=== PATIENT | male | born 1935 | race Caucasian/White ===

== ENCOUNTER 2016-10-31 21:03 | Inpatient (IN) ==
--- NOTE | 2016-10-31 22:02 | EKG Report ---
Test Performed on : 10/31/2016 9:56:07 PM Test Reason : SOB Blood Pressure : / mmHG Vent. Rate : 116 BPM Atrial Rate : 116 BPM P-R Int : 168 ms QRS Dur : 100 ms QT Int : 332 ms P-R-T Axes : 061 143 042 degrees QTc Int : 461 ms Sinus tachycardia. Right axis deviation Abnormal ECG No previous ECGs available Unconfirmed Result
--- NOTE | 2016-10-31 23:03 | ED EKG INTERP ---
This chart was entered by Grace Maurice Scribe, acting as scribe for Marvin Chaney Jr, MD. EKG Interpretation - EKG Time of EKG reading by physician:: 21:56 EKG Read and Signed by:: Marvin Chaney Jr EKG Interpretation (*Must complete 3 of following elements*): Abnormal Rate: 116 Rhythm: sinus tachycardia Comments: abnormal ECG Attestation - Physician/ MEGAN Attestation The physician spent face to face time with patient:: No Advanced Practice Provider documentation review:: Supervising physician onsite and consulted in the evaluation and care of this patient. The physician did not have a face to face encounter with the patient. This chart was documented by the indicated scribe, (Grace Maurice Scribe) and accurately reflects the services I performed and decisions made by me, Marvin Chaney Jr, MD, as attested by the provider's signature.
[2016-10-31 23:11] LABS: MANUAL DIFF NEEDED? NO
[2016-10-31 23:16] LABS: BASO% 0.1 % (0.0-0.8); HEMATOCRIT 37.8 % (42.0-52.0); HEMOGLOBIN 12.9 g/dL (14.0-18.0); IMM GRAN# 0.04 X1000 (0.0-0.04); IMM GRAN% 0.3 % (0.0-0.5); LYMPH# 0.87 X1000 (1.2-3.4); LYMPH% 6.9 % (20.5-51.1); MCHC 34.1 g/dL (33-37); MCV 84.9 FL (81-99); MONO# 1.12 X1000 (0.11-0.59); MONO% 8.9 % (1.7-9.3); MPV 10.9 FL (7.4-10.4); NEUT% 83.8 % (42.2-75.2); PLT 167 X1000 (130-400); RBC 4.45 XMIL (4.7-6.1)
--- NOTE | 2016-10-31 23:18 | Diag Imaging Result Doc PS360 ---
EXAM: CHEST-2 VIEWS HISTORY: CP TECHNIQUE: Two views COMPARISON: None. FINDINGS: The lungs are hyperexpanded. The heart is not enlarged. The pulmonary vessels are small. No pleural effusions. Minimal increased markings in the lung base best seen on the lateral view. A believe this is in the right lower lobe. IMPRESSION: Emphysema. Fibrosis versus a tiny infiltrate in the right base. Electronically signed by Jason Alvarez 10/31/2016 11:16 PM
[2016-10-31 23:20] LABS: INR 1.03 (0.86-1.15); PROTIME 14.3 Seconds (12.1-15.5)
[2016-10-31 23:21] LABS: PTT PL 28.4 Seconds (22.6-43.9)
[2016-10-31 23:38] LABS: MAGNESIUM 2.2 mg/dL (1.5-2.7); POTASSIUM 4.9 mmol/L (3.5-5.1); TOTAL BILIRUBIN 1.2 mg/dL (0.20-1.00); TOTAL PROTEIN 6.8 g/dL (6.3-8.3)
[2016-10-31] MEDS ORDERED: HUMULIN R (PARKWAY) IV ONE (23:47)
[2016-10-31] MEDS ORDERED: NS 1,000 ML IV ONE (23:47)
--- NOTE | 2016-11-01 00:19 | EKG Report ---
Test Performed on : 11/01/2016 00:02:39 AM Test Reason : CHEST PAIN Blood Pressure : / mmHG Vent. Rate : 111 BPM Atrial Rate : 111 BPM P-R Int : 168 ms QRS Dur : 100 ms QT Int : 342 ms P-R-T Axes : 057 123 043 degrees QTc Int : 465 ms Sinus tachycardia. Right axis deviation Abnormal ECG When compared with ECG of 31-OCT-2016 21:56, (Unconfirmed) No significant change was found Unconfirmed Result
[2016-11-01] MEDS ORDERED: HUMULIN R IV ONE ×2 (01:28→10:07)
[2016-11-01] MEDS ORDERED: NS 1,000 ML IV ONE ×3 (01:28→06:00)
[2016-11-01] MEDS ORDERED: HUMULIN R (PARKWAY) ONE (01:33)
[2016-11-01 01:41] LABS: BE -10.7 mmoll (-3.0-3.0); BLOOD TYPE ARTERIAL; DRAW SITE R BRACHIAL; METHB 1.3 % (0.0-1.5); O2(CT) 15.8 mL/dL (15.0-23.0); PCO2(98.6) 28 mmHg (35-45); PO2(98.6) 56 mmHg (60-100); SAMPLE BLOOD; SAO2 93.5 % (95.0-100.0); THB 12.5 g/dL (11.5-17.4); pH(98.6) 7.31 (7.35-7.45)
[2016-11-01 01:46] LABS: ALLEN TEST NO; MODALITY ROOM AIR
[2016-11-01] MEDS ORDERED: ROCEPHIN 1 GM/NS 1 GM/50 ML IVPB IV ONE (03:30)
--- NOTE | 2016-11-01 03:45 | ED EKG INTERP ---
This chart was entered by Grace Maurice Scribe, acting as scribe for Marvin Chaney Jr, MD. EKG Interpretation - EKG Time of EKG reading by physician:: 00:02 EKG Read and Signed by:: Marvin Chaney Jr EKG Interpretation (*Must complete 3 of following elements*): Abnormal Rate: 111 Rhythm: sinus tachycardia Comments: abnormal ECG Attestation - Physician/ MEGAN Attestation The physician spent face to face time with patient:: Yes Advanced Practice Provider documentation review:: Supervising physician onsite and consulted in the evaluation and care of this patient. The physician did have a face to face encounter with the patient. This chart was documented by the indicated scribe, (Grace Maurice Scribe) and accurately reflects the services I performed and decisions made by me, Marvin Chaney Jr, MD, as attested by the provider's signature.
[2016-11-01] MEDS ORDERED: MORPHINE IV PRN (03:52)
[2016-11-01] MEDS ORDERED: ZOFRAN IV PRN ×2 (03:52→06:00)
--- NOTE | 2016-11-01 03:54 | PROVIDER DOCUMENTATION ---
This chart was entered by Grace Maurice Scribe, acting as scribe for Marvin Chaney Jr, MD. HPI-General Adult - General Chief Complaint: Shortness of Breath Stated Complaint: BLURRED VISION/WEAKNESS Time Seen by Provider: 11/01/16 00:03 Source: patient, family Allergies/Adverse Reactions: Patient Allergies Allergy/AdvReac Type Severity Reaction Status Date / Time No Known Allergies Allergy Verified 10/21/13 17:14 Home Medications: Home Medication List Medication Instructions Recorded Confirmed Last Taken Type NK [No Home Medications] 10/31/16 10/31/16 Unknown History - History of Present Illness -Gen Adult Nature of Presenting Problems: 81 y/O M presents to ER with family with the complain of nausea/vomit/SOB and blurry vision X1 day. pt family states that it is going for one day and pt had X2 episode of vomit. pt denies any other symptoms. Severity: reports: mild Onset/Duration: reports: 24 hours ago Similar Symptoms Previously?: No Recently seen or treated by another doctor?: No Review of Systems - Adult - REVIEW OF SYSTEMS - ADULT Constitutional: reports: no symptoms reported Eyes: reports: blurred vision. denies: discharge, double vision Ears, Nose, Mouth & Throat: reports: no symptoms reported Cardiovascular: reports: no symptoms reported Respiratory: reports: shortness of breath. denies: cough, wheezing Gastrointestinal: reports: nausea, vomiting. denies: abdominal pain, diarrhea Genitourinary: reports: no symptoms reported Musculoskeletal: reports: no symptoms reported Integumentary: reports: no symptoms reported Neurological: reports: no symptoms reported Psychiatric: reports: no symptoms reported Endocrine: reports: no symptoms reported Hematologic/Lymphatic: reports: no symptoms reported Allergic/Immunologic: reports: no symptoms reported All Other Systems: Reviewed and Negative Past History - Adult - PAST MEDICAL HISTORY-ADULT Review of Records: reports: Old Records Reviewed, Nursing Assessment Review Cardiovascular: reports: HTN Neurological: reports: dementia Endocrine/Immune: reports: Diabetes - PRIOR SURGERIES/PROCEDURES Surgical/Procedure History: reports: orthopedic (extremity) (Right knee surgery 2010) - IMMUNIZATION STATUS Childhood Immunizations: See Nurse Assessment Flu Vaccine: See Nurse Assessment - FAMILY HISTORY Family History: reviewed, not pertinent Physical Exam-General - PHYSICAL EXAM-ADULT Initial Vital Signs Reviewed: Yes - CONSTITUTIONAL General Appearance: appears well, alert - EYES Eyes: PERRL/EOMI, pink conjunctivae - HEAD, EARS, NOSE, MOUTH & THROAT HENMT: moist mucous membranes, normal ENT inspection, TMs normal - NECK Neck: non-tender, full range of motion, supple - RESPIRATORY Respiratory: chest non-tender, lungs clear, normal breath sounds - CARDIOVASCULAR Cardiovascular: normal peripheral pulses, regular rate, rhythm, no edema - GASTROINTESTINAL (ABDOMEN) Abdominal Exam: normal bowel sounds, non tender, soft - MUSCULOSKELETAL Back Exam: normal inspection, no CVA tenderness, no vertebral tenderness Extremity: non-tender, normal inspection - SKIN Integumentary: normal color, normal turgor, warm/dry - NEUROLOGIC Neurologic: grossly normal, no motor/sensory deficits - PSYCHIATRIC Psych/Mental Status: normal mood/affect, normal thought content, normal thought process, oriented x 3 Progress - PLAN OF CARE/RESULTS Progress/Plan/Lab Results: Vital Signs - 8 hr 10/31/16 21:40 10/31/16 21:50 10/31/16 22:42 Temperature 99.5 F Pulse Rate 122 H 120 H 111 H Respiratory Rate 20 21 26 H Blood Pressure 142/71 139/74 123/74 O2 Sat by Pulse Oximetry 94 L 93 L 95 10/31/16 23:43 Temperature Pulse Rate 110 H Respiratory Rate 23 Blood Pressure 133/74 O2 Sat by Pulse Oximetry 95 Laboratory Results - last 24 hr 10/31/16 10/31/16 10/31/16 22:10 22:10 22:10 WBC RBC Hgb Hct MCV MCH MCHC RDW Std Deviation Plt Count MPV Immature Gran % (Auto) Neut % (Auto) Lymph % (Auto) Amador % (Auto) Eos % (Auto) Baso % (Auto) Immature Gran # (Auto) Neut # (Auto) Lymph # (Auto) Amador # (Auto) Eos # (Auto) Baso # (Auto) PT INR APTT (Factor Assay) D-Dimer Sodium 129 L Potassium 4.9 Chloride 88 L Carbon Dioxide 10 L Anion Gap 31 BUN 31 H Creatinine 1.8 H Estimated GFR/1.73 m2 36 BUN/Creatinine Ratio 17 Glucose 616 H* Calculated Osmolality 295 Calcium 9.0 Total Bilirubin 1.20 H AST 17 Alkaline Phosphatase 113 Troponin T 0.014 Spr-B-Ldboraimfwp Pept 689 H Total Protein 6.8 Albumin 4.0 Globulin 3.0 Albumin/Globulin Ratio 1.0 Acetone Level 10/31/16 10/31/16 10/31/16 22:10 22:10 23:58 WBC 12.63 H RBC 4.45 L Hgb 12.9 L Hct 37.8 L MCV 84.9 MCH 29.0 MCHC 34.1 RDW Std Deviation 14.0 Plt Count 167 MPV 10.9 H Immature Gran % (Auto) 0.3 Neut % (Auto) 83.8 H Lymph % (Auto) 6.9 L Amador % (Auto) 8.9 Eos % (Auto) 0.0 Baso % (Auto) 0.1 Immature Gran # (Auto) 0.04 Neut # (Auto) 10.59 H Lymph # (Auto) 0.87 L Amador # (Auto) 1.12 H Eos # (Auto) 0.00 Baso # (Auto) 0.01 PT 14.3 INR 1.03 APTT (Factor Assay) 28.4 D-Dimer 0.73 H Sodium Potassium Chloride Carbon Dioxide Anion Gap BUN Creatinine Estimated GFR/1.73 m2 BUN/Creatinine Ratio Glucose Calculated Osmolality Calcium Total Bilirubin AST Alkaline Phosphatase Troponin T Nzf-H-Sfkxisdtjco Pept Total Protein Albumin Globulin Albumin/Globulin Ratio Acetone Level MODERATE A Orders Category Date Time Status Cardiac Monitoring DIRECTED Care 10/31/16 23:00 Active Saline Loc NOW Care 10/31/16 23:00 Active CHEST-2 VIEWS [RAD] Stat Exams 10/31/16 23:00 Completed ACETONE SERUM [CHEM] Stat Lab 10/31/16 23:58 Completed CBC WITH ELECTRONIC DIFF [HEME] Stat Lab 10/31/16 22:10 Completed CK PROFILE [SP CHEM] Stat Lab 10/31/16 22:10 Completed COMPREHENSIVE METABOLIC PANEL [CHEM] Stat Lab 10/31/16 22:10 Completed D-DIMER PL [COAG] Stat Lab 10/31/16 22:10 Completed MAGNESIUM [CHEM] Stat Lab 10/31/16 22:10 Completed PRO B-NATRIURETIC PEPTIDE Stat Lab 10/31/16 22:10 Completed [address]IME WITH INR PL [COAG] Stat Lab 10/31/16 22:[address] [COAG] Stat Lab 10/31/16 22:10 Completed TROPONIN T Stat Lab 10/31/16 22:[address] W/POSS RFLX CULT [URINALYSIS] Stat Lab 10/31/16 23:48 Uncollected 0.9% Sodium Chloride Inj [Ns] 1,000 ml Med 10/31/16 23:47 Discontinued IV 999 mls/hr Insulin Human Regular (Athalia [Humulin R (Athalia)] Med 10/31/16 23:47 Discontinued 12 units IV NOW ONE EKG [EKG] Stat Ther 10/31/16 21:52 Draft EKG [EKG] Stat Ther 10/31/16 23:00 Draft Result Diagrams: 10/31/16 22:10 10/31/16 22:10 - XRAY 1 XRAY: Bilateral XRAY Study: Chest Impression: Abnormal (Emphysema Fibrosis versus a tiny infiltrate in R base by radiologist) - CONSULTS/PCP/HOSPITALIST Notification #1 *Consult/PCP/Hospitalist*: Dr. Mccollum Time Discussed: 03:36 Reason/Comments: discussed about pt Consult Disposition: Admit (accepted pt in admission to ICU) Departure - Departure Date of Disposition Decision: 11/01/16 Time of Disposition Decision: 03:48 DIAGNOSIS: Sepsis Qualifiers: Sepsis type: sepsis due to unspecified organism Qualified Code(s): A41.9 - Sepsis, unspecified organism DKA (diabetic ketoacidoses) Qualifiers: Diabetes mellitus type: type 2 Diabetes mellitus complication detail: without coma Qualified Code(s): E13.10 - Other specified diabetes mellitus with ketoacidosis without coma Pneumonia Qualifiers: Pneumonia type: due to unspecified organism Laterality: right Lung location: lower lobe of lung Qualified Code(s): J18.1 - Lobar pneumonia, unspecified organism Disposition: ADMITTED INPATIENT 09 Certified Medical Emergency: Emergent Condition: Good Referrals and Follow-Ups: Noemi Cintron [Primary Care Provider] - - Critical Care Note This patient required my direct & personal management of CC.: No Total Time (mins): 30 Critical Care Statement: This patient required my direct personal management to treat or rule out processes, the absence of which, could potentiallly result in sudden, clinically significant life or limb threatening deterioration. Attestation - Physician/ MEAGN Attestation The physician spent face to face time with patient:: Yes Advanced Practice Provider documentation review:: Supervising physician onsite and consulted in the evaluation and care of this patient. The physician did have a face to face encounter with the patient. This chart was documented by the indicated scribe, (Grace Maurice Scribe) and accurately reflects the services I performed and decisions made by me, Marvin Chaney Jr, MD, as attested by the provider's signature.
[2016-11-01 04:22] LABS: BILIRUBIN URINE NEGATIVE (NEGATIVE); BLOOD URINE 1+ (NEGATIVE); CLARITY CLEAR (CLEAR); COLOR YELLOW; LEUKOCYTES URINE NEGATIVE (NEGATIVE); NITRITE URINE NEGATIVE (NEGATIVE); PROTEIN URINE 1+(30 mg/dL) mg/dL (NEGATIVE); SP GRAVITY URINE 1.015; UROBILINOGEN URINE NORMAL
[2016-11-01 04:30] LABS: URINE CULTURE PL NEEDED? YES; URINE EPITHELIAL CELLS <10 /HPF (<10); URINE RBC <10 /HPF (<10); URINE SOURCE CLEAN CATCH; URINE WBC NS /HPF (<10)
[2016-11-01] MEDS ORDERED: NS 1,000 ML IV SCH ×3 (05:55→11:35)
[2016-11-01] MEDS: ZOSYN 3.375 GM in NS 50 ML IV SCH ×4 (06:40→23:42)
--- NOTE | 2016-11-01 06:50 | HISTORY AND PHYSICAL ---
PRIMARY CARE PHYSICIAN: None. CHIEF COMPLAINT: Mental status changes. HISTORY OF PRESENT ILLNESS: An 81-year-old male who was brought to the emergency department due to having mental status changes and not feeling well. Apparently, he was evaluated at [facility] and is found to be in early DKA and imaging was consistent with pneumonia. Due to ICU beds being filled there, he was transferred to [facility] for further evaluation and management. At the time of my examination, patient is moderately confused. He is a poor historian. However, he had denied any headache, fever, chills, chest pain, or any recent weight changes. He states that he just does not know what is going on. PAST MEDICAL HISTORY: Unknown. PAST SURGICAL HISTORY: Unknown. ALLERGIES: No known drug allergies. CURRENT MEDICATIONS: None. SOCIAL HISTORY: Denies any history of smoking, alcohol or illicit drug use. FAMILY HISTORY: No history of coronary disease. REVIEW OF SYSTEMS: Limited due to his mental status changes. PHYSICAL EXAMINATION: GENERAL: The patient is resting comfortably. VITAL SIGNS: Temperature 97.5 degrees, pulse 91, respiration 26, blood pressure 112/64. HEENT: Atraumatic, normocephalic. Extraocular movements intact. PERRLA. NECK: No masses. CHEST: Bibasilar rales. CARDIOVASCULAR: Regular rate and rhythm. ABDOMEN: Soft. Positive bowel sounds. EXTREMITIES: No edema. NEUROLOGIC: He is awake, alert and oriented x2. : No bladder distention. SKIN: Warm. LABORATORIES AND STUDIES: Sodium 129, potassium 4.9, chloride 88, CO2 10, BUN 31, creatinine 1.8, glucose 16. WBC 12.63, hemoglobin 12.9, hematocrit 37.8 and platelets 167,000. Urine shows ketones. ASSESSMENT: An 81-year-old elderly male who is brought to the emergency department due to mental status changes and not feeling well. He was found to be in early DKA and also was found to have pneumonia on imaging. Due to his presenting symptoms, he will be admitted and however due to lack of ICU beds available at [facility], he nd was transferred to [facility] for further management. 1. Altered mental status possibly related to his infectious etiology versus underlying dementia. 2. Suspected dementia. 3. Early DKA. 4. Sepsis. 5. Pneumonia. PLAN: 1. We will admit patient to ICU. 2. We will check neuro checks q.2 hours. 3. Continue patient on IV fluids and put patient on high sliding insulin scale as his sugars have consistently come down. 4. We will check blood cultures. Start patient on IV antibiotics. 5. We will put patient on DVT prophylaxis with SCD's. 6. We will monitor his renal function as he has some acute kidney injury. 7. We will continue to follow and reassess. cc: Randolph Mccollum MD
[2016-11-01] MEDS ORDERED: HUMULIN R SUBQ SCH (07:00)
[2016-11-01] MEDS ORDERED: SODIUM BICARBONATE 8.4% 50 MEQ in D5W 250 ML IV PRN (10:07)
[2016-11-01] MEDS ORDERED: SODIUM BICARBONATE 8.4% 100 MEQ in D5W 500 ML IV PRN (10:07)
[2016-11-01] MEDS ORDERED: SODIUM PHOSPHATE 30 MMOL in D5W 250 ML IV PRN (10:07)
[2016-11-01] MEDS ORDERED: D5 1/2 NS 1,000 ML IV SCH (10:07)
[2016-11-01] MEDS ORDERED: 1/2 NS 1,000 ML IV SCH (10:07)
[2016-11-01] MEDS ORDERED: HUMULIN R 100 UNIT in NS 99 ML IV SCH (10:07)
[2016-11-01] MEDS ORDERED: D50W SYRINGE IV PRN (10:07)
[2016-11-01] MEDS ORDERED: MAGNESIUM SULFATE 2 GM/S.W.I. 2 GM/50 ML IVPB IV PRN (10:07)
[2016-11-01] MEDS ORDERED: D5 NS 1,000 ML IV SCH (10:32)
--- NOTE | 2016-11-01 10:53 | PROGRESS NOTE ---
DATE: 11/01/2016 SUBJECTIVE: Today, Mr. Amador said he was doing fine. I am not quite sure how much he definitely understands because he seems slightly obtunded. OBJECTIVE: Vital signs: Blood pressure is 126/61, pulse 87, respirations 20, temperature 97.5. General: Mr. Amador is an 81-year-old male. He is in bed. He does not seem to be in any remarkably distress. Mucosa is pink and slightly dry. Anicteric and acyanotic. Neck is supple. Chest was clear. Cardiovascular: Regular rate and rhythm. I did not appreciate any murmurs. Abdomen: Soft, nontender. Extremities: No pedal edema. SUBSTANCE ABUSE THERAPIST: The patient is sleepy but easily arousable. He seems to be confused, but I suspect he has a baseline dementia. DIAGNOSTIC DATA: ABG from this morning shows pH of 7.31, pCO2 of 28, paO2 is 56, and this was on ambient air. Chemistry from yesterday shows a sodium of 129, potassium 4.9, chloride 88, bicarb is 10 with gap of 31, creatinine is 1.8. Glucose at that time was 616, this morning his repeat glucose is 249. Chest x-ray which was done yesterday shows emphysema, fibrosis versus a tiny infiltrate in the right base. ASSESSMENT: 1. Diabetic ketoacidosis. 2. 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 3. Suspected right lower lobe pneumonia, infiltrate, questionable pneumonia. 4. Acute hypoxemic respiratory distress, likely due to underlying pneumonia and chronic obstructive pulmonary disease. 5. Altered mental status, likely due to metabolic encephalopathy with possible underlying dementia. 6. Renal insufficiency, likely acute on chronic. PLAN: The patient is already on Zosyn. We do not have any recent labs to check his DKA status. We are going to do a BMP STAT. If the patient continues to be acidotic, we will start the DKA protocol. For now, we will continue with adequate hydration. So far, the blood cultures preliminary is unremarkable. cc: Soham Alvares MD
[2016-11-01 11:16] LABS: CALCIUM 8.3 mg/dL (8.8-10.2)
[2016-11-01 11:24] LABS: MAGNESIUM 2.1 mg/dL (1.5-2.7)
[2016-11-01] MEDS: LANTUS SUBQ SCH (12:48)
[2016-11-01] MEDS ORDERED: INSULIN PEN NEEDLES ONE (12:48)
[2016-11-01] MEDS: HUMULIN R SUBQ SCH ×2 (16:00→20:38)
[2016-11-01 16:03] LABS: AGAP 16; BUN 25 mg/dL (8-22); CALCIUM 8.1 mg/dL (8.8-10.2); CHLORIDE 101 mmol/L (98-107); COSMO 285; SODIUM 138 mmol/L (136-145); TCO2 21 mmol/L (25-35)
[2016-11-01] MEDS ORDERED: POTASSIUM PHOSPHATE 20 MMOL in NS 250 ML IV ONE (16:06)
[2016-11-01] MEDS ORDERED: NEUTRA-PHOS PO ONE (16:06)
[2016-11-01] MEDS: NS 1,000 ML IV SCH (17:06)
[2016-11-02] MEDS: NS 1,000 ML IV SCH ×3 (04:51→15:23)
[2016-11-02] MEDS: ZOSYN 3.375 GM in NS 50 ML IV SCH ×4 (04:54→17:00)
[2016-11-02 05:51] LABS: BASO% 0.1 % (0.0-0.8); EOS# 0.02 X1000 (0.0-0.7); EOS% 0.2 % (0.0-10.0); HEMOGLOBIN 13.2 g/dL (14.0-18.0); IMM GRAN# 0.02 X1000 (0.0-0.04); IMM GRAN% 0.2 % (0.0-0.5); MANUAL DIFF NEEDED? NO
[2016-11-02 06:09] LABS: HEMOGLOBIN A1C 13.8 % (4.8-6.0)
[2016-11-02 06:11] LABS: AGAP 16; BUN 19 mg/dL (8-22); CALCIUM 8.2 mg/dL (8.8-10.2); CHLORIDE 100 mmol/L (98-107); COSMO 275; SODIUM 136 mmol/L (136-145); TCO2 20 mmol/L (25-35)
[2016-11-02] MEDS: HUMULIN R SUBQ SCH ×4 (06:18→22:46)
[2016-11-02 07:48] LABS: HEMATOCRIT 37.8 % (42.0-52.0); LYMPH# 1.45 X1000 (1.2-3.4); LYMPH% 14.8 % (20.5-51.1); MCH 28.9 PG (27-31); MCHC 34.9 g/dL (33-37); MCV 82.7 FL (81-99); MONO# 0.91 X1000 (0.11-0.59); MONO% 9.3 % (1.7-9.3); MPV 10.9 FL (7.4-10.4); NEUT% 75.4 % (42.2-75.2); PLT 197 X1000 (130-400); RBC 4.57 XMIL (4.7-6.1)
--- NOTE | 2016-11-02 09:32 | PROGRESS NOTE ---
DATE: 11/02/2016 SUBJECTIVE: Mr. Amador was sleeping, resting comfortably, breathing comfortably. He was admitted yesterday morning. He had mental status changes. His sees Dr. Noemi Cintron. An 81-year-old, brought to the emergency department due to having mental status changes, not feeling well. Apparently he was evaluated at [facility], found to have early DKA. Imaging was consistent with pneumonia. Due to ICU beds being filled, he was transferred here to [facility]. At time of examination, patient was moderately confused, poor historian. Denied any headache, fever, chills, chest pain, or any recent weight changes. PAST MEDICAL HISTORY: Kind of unknown at this point. Suspect some underlying dementia. Admitted with sepsis, early DKA, suspected dementia and pneumonia. He was sleeping, resting comfortably and breathing comfortably when I saw him on the morning of 11/02/2016. OBJECTIVE: Vital Signs: Temp 98.6 degrees, pulse 90, respirations 8, blood pressure 121/67. Lungs: Clear anterior and lateral and posterior. Cardiovascular exam: Regular rhythm and rate without murmur or S3. Abdomen: Soft. Skin: Warm and dry. : Urine output 2800 mL. LAB: White count 9790, hematocrit 37, platelet count 197,000. Chemistry: Sodium 136, potassium 4.0, chloride 100, BUN 19, creatinine 1.1, blood sugar 219, 122, and 113. Hemoglobin A1c was 13.8. ASSESSMENT AND PLAN: 1. Diabetic ketoacidosis, which is resolved. 2. Pneumonia and underlying chronic obstructive pulmonary disease. He has emphysematous changes on x-ray, so exacerbation of chronic obstructive pulmonary disease, right lower lobe pneumonia infiltrate. Continue present antibiotics. Appears to have good air-gas exchange. 3. Acute hypoxemic respiratory distress due to underlying pneumonia and chronic obstructive pulmonary disease. This is improved. 4. Altered mental status. Suspect multifactorial metabolic encephalopathy probably with underlying dementia. 5. Renal insufficiency. Suspect acute on chronic. His creatinine was stable at 1.1. He looks good. Review of his orders: He got a dose of ceftriaxone. He is on Zosyn 3.375 mg IV q. 6 hours. He is on normal saline at 100 mL an hour. He is getting insulin IV. I think we can change him to sliding-scale subcutaneous. cc: MD Soham Flannery MD
[2016-11-02] MEDS: LANTUS SUBQ SCH (11:02)
--- NOTE | 2016-11-02 19:08 | Extremity Venous Study ---
PROCEDURE NAME: Venous U/S Bilateral Legs - 11/01/2016 REQUESTING PHYSICIAN: Dr. Chaney. [employer] S[employer] INTEGRATION SENIOR MANAGER: Rachel. INDICATIONS: Shortness of breath. PROCEDURE: Bilateral lower extremity venous duplex and color flow imaging. EQUIPMENT: [employer] Vivid E9 ultrasound system with 9 LD transducer. FINDINGS: Images of bilateral lower extremity venous systems were obtained in both sagittal and transverse planes. Doppler was used to evaluate veins for spontaneity, phasicity, respiratory excursion, and digital augmentation. RESULTS: Some reflux noted in the bilateral common femoral vein but otherwise no superficial or deep venous thrombosis noted. INTERPRETATION: Reflux noted in the bilateral common femoral veins but no obvious superficial or deep venous thrombosis noted on this study to bilateral lower extremity. cc: MD Soham Schwab MD
[2016-11-03] MEDS: ZOSYN 3.375 GM in NS 50 ML IV SCH ×4 (01:35→17:56)
[2016-11-03] MEDS: NS 1,000 ML IV SCH ×2 (05:54→16:01)
[2016-11-03] MEDS ORDERED: INSULIN PEN NEEDLES ONE (10:44)
[2016-11-03] MEDS: HUMULIN R SUBQ SCH ×4 (10:46→22:11)
[2016-11-03] MEDS: LANTUS SUBQ SCH (10:47)
--- NOTE | 2016-11-03 14:46 | PROGRESS NOTE ---
DATE: 11/03/2016 SUBJECTIVE: Mr. Amador is resting sleeping, able to arouse him but he went right back sleep again, he does not appear to be any distress breathing comfortably. His lunch was there, he is going to need some help with eating. OBJECTIVE: Vital signs: Temperature 98.3 degrees, pulse 94, respirations 20, blood pressure 136/63. Lungs: Are clear anterior and posterior. Cardiovascular: Regular rhythm and rate without murmur or S3. Abdomen: Soft. Skin: Warm and dry. Urine output 2300. LAB: Reviewed from , blood sugars have been 120, 142, 238. ASSESSMENT AND PLAN: 1. Diabetic ketoacidosis which has resolved. 2. Pneumonia underlying chronic obstructive pulmonary disease, chronic obstructive pulmonary disease exacerbation and right lower lobe pneumonia which is better. Continue IV antibiotics. 3. Acute hypoxic respiratory distress with underlying pneumonia which is resolved quickly. He is out of the unit back on the floor breathing comfortably. 4. Altered mental status suspect multifactor metabolic encephalopathy. Still pretty lethargic. 5. Renal insufficiency. Creatinine looks like is back to baseline. Continue Zosyn IV and ceftriaxone. I am not sure where his baseline is so hopefully he wake up and we can continue physical therapy and encourage p.o. intake. IV fluids right now going at 100 mL an hour. I do not know that we have ever had an echocardiogram, may be worth getting 1 to look at his left ventricle, will see how he does. cc: MD Soham Flannery MD
[2016-11-03] MEDS: MORPHINE IV PRN (22:13)
[2016-11-04] MEDS: MORPHINE IV PRN ×2 (00:40→06:15)
[2016-11-04] MEDS: ZOSYN 3.375 GM in NS 50 ML IV SCH ×4 (00:40→18:15)
[2016-11-04] MEDS: NS 1,000 ML IV SCH ×5 (05:11→22:46)
[2016-11-04] MEDS: HUMULIN R SUBQ SCH ×4 (06:47→22:28)
[2016-11-04] MEDS: LANTUS SUBQ SCH (10:54)
--- NOTE | 2016-11-04 17:17 | PROGRESS NOTE ---
DATE: 11/04/2016 SUBJECTIVE: This is an 81-year-old brought into the emergency room on 11/01 having mental status changes, not feeling well. Evaluated at [place] and found to have DKA and some pneumonia. Was sent here to [facility]. He is much better. He is awake and alert and asked about going home. PHYSICAL EXAMINATION: Vital Signs: Temperature 98.7 degrees, pulse 59, respirations 18, blood pressure 129/73. HEENT: Pupils were equal, round. Lungs: Clear in all lung whitney. Cardiovascular: Regular rhythm and rate without murmur or S3. Abdomen: Soft. Skin: Warm and dry. Intake and output: Urine output 1600 mL. LAB: Reviewed from the . Blood sugars 117, 224, 265. ASSESSMENT AND PLAN: 1. Diabetic ketoacidosis which has resolved. 2. Pneumonia with underlying chronic obstructive pulmonary disease, chronic obstructive pulmonary disease exacerbation. He is better. Continue present IV antibiotics. He is getting close to being able to go back to the care home. 3. Acute hypoxic respiratory distress which has resolved. 4. Mental status changes. I think that has improved, back to baseline. He had some underlying metabolic encephalopathy, probably secondary to the infection and DKA. 5. Renal insufficiency. Creatinine is improving. 6. Diabetes mellitus type 2. Sugars appear under fairly good control. We will check basic metabolic profile and CBC tomorrow and repeat a chest x-ray. May get to go home soon. cc: MD Soham Flannery MD
--- NOTE | 2016-11-04 18:59 | Diag Imaging Result Doc PS360 ---
EXAM: CHEST-2 VIEWS HISTORY: pneumonia TECHNIQUE: Two views COMPARISON: 10/31/2016 FINDINGS: The lungs are hyper expanded. The heart is not enlarged. The vessels are not distended. There are no infiltrates. There are small pleural effusions. Minimal basilar atelectasis. IMPRESSION: No pneumonia. Electronically signed by Jason Alvarez 11/04/2016 6:57 PM
[2016-11-05] MEDS: ZOSYN 3.375 GM in NS 50 ML IV SCH ×4 (00:27→17:27)
[2016-11-05] MEDS: HUMULIN R SUBQ SCH ×3 (06:22→17:28)
[2016-11-05 06:33] LABS: MANUAL DIFF NEEDED? NO
[2016-11-05 06:38] LABS: BASO% 0.2 % (0.0-0.8); EOS# 0.04 X1000 (0.0-0.7); EOS% 0.8 % (0.0-10.0); HEMATOCRIT 35.2 % (42.0-52.0); HEMOGLOBIN 12.1 g/dL (14.0-18.0); IMM GRAN# 0.04 X1000 (0.0-0.04); IMM GRAN% 0.8 % (0.0-0.5); LYMPH# 0.91 X1000 (1.2-3.4); LYMPH% 19.2 % (20.5-51.1); MCH 28.7 PG (27-31); MCHC 34.4 g/dL (33-37); MCV 83.4 FL (81-99); MONO# 0.42 X1000 (0.11-0.59); MONO% 8.8 % (1.7-9.3); MPV 9.6 FL (7.4-10.4); NEUT% 70.2 % (42.2-75.2); PLT 220 X1000 (130-400); RBC 4.22 XMIL (4.7-6.1)
[2016-11-05 07:02] LABS: AGAP 14; BUN 11 mg/dL (8-22); CALCIUM 8.5 mg/dL (8.8-10.2); CHLORIDE 104 mmol/L (98-107); COSMO 283; POTASSIUM 3.7 mmol/L (3.5-5.1); SODIUM 142 mmol/L (136-145); TCO2 24 mmol/L (25-35)
[2016-11-05] MEDS: NS 1,000 ML IV SCH ×2 (09:17→23:00)
[2016-11-05] MEDS: LANTUS SUBQ SCH (09:19)
--- NOTE | 2016-11-05 15:55 | PROGRESS NOTE ---
DATE: 11/05/2016 SUBJECTIVE: Today Mr. sullivan referred to be doing a lot better. He does not actually have any complaints. OBJECTIVE: Vital Signs: Stable. Blood pressure is 153/89, pulse of 93, respiration is 20, temperature 98.2 degrees. General: Mr. Amador is an 81-year-old male, very pleasant. He was in bed. Not seemingly in distress. HEENT: Mucosa is pink and moist. Anicteric. Acyanotic. Neck: Supple. Chest: Clear. Cardiovascular: Regular rate and rhythm. Abdomen: Soft. Extremities: No pedal edema. 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 No focal neurological deficit. LABORATORY DATA: WBC is 4.75, hemoglobin is 12.1, platelet count of 220,000. Chemistry is also reviewed, completely unremarkable. Glucose is 99. ASSESSMENT: 1. Diabetic ketoacidosis. Improved. 2. Diabetes mellitus with presenting A1c of 13. Patient will be needing insulin at least for the short term. 3. 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 Patient has been counseled. 4. Renal, acute kidney injury. Resolved. 5. Altered mental status secondary to metabolic encephalopathy. Improved. So in general, we think Mr. Amador is doing a lot better. Blood cultures have been fine. Chest x- ray shows no pneumonia. I will therefore discontinue the antibiotics. Patient will be on insulin and metformin for blood glucose control. We are pending a rehab bed so that we can discharge him. cc: Soham Alvares MD
[2016-11-05] MEDS: GLUCOPHAGE PO SCH (17:28)
[2016-11-06] MEDS: ZOSYN 3.375 GM in NS 50 ML IV SCH ×3 (00:50→12:05)
[2016-11-06] MEDS: HUMULIN R SUBQ SCH ×4 (01:11→17:05)
[2016-11-06] MEDS: NS 1,000 ML IV SCH ×2 (05:14→17:06)
[2016-11-06] MEDS: GLUCOPHAGE PO SCH ×2 (09:20→17:05)
[2016-11-06] MEDS: LANTUS SUBQ SCH (09:21)
--- NOTE | 2016-11-06 13:22 | DISCHARGE SUMMARY ---
ADMISSION DATE: 11/01/2016 DISCHARGE DATE: 11/06/2016 CONSULTATIONS: None. PERTINENT PROCEDURES: 1. Bilateral lower extremity Dopplers: Reflex noted in bilateral common femoral veins, but no obvious superficial or deep venous thrombosis noted. 2. Emphysema: Fibrosis versus a tiny infiltrate in the right base. DISCHARGE DIAGNOSES: 1. Diabetic ketoacidosis, resolved. 2. Diabetes mellitus. Presenting A1c of 13. Patient will continue on pattern blood sugars along with Lantus and metformin. 3. 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 4. Acute kidney injury with renal insufficiency improved. 5. Altered mental status secondary to metabolic encephalopathy, resolved. 6. Pneumonia. The patient just finished treatment course. 7. Acute hypoxemic respiratory failure, resolved. HOSPITAL COURSE: Mr. Amador is an 81-year-old male, who was brought into the ED due to having mental status changes and not feeling well. He was evaluated at [facility], and found to be in early DKA. Imaging was consistent with pneumonia due to no ICU beds at [facility]. He was transferred to [facility] for further management. The patient was placed on IV fluids and high sliding insulin scale, as well as blood cultures and started on IV antibiotics. We monitored his renal function. Mr. Amador did briefly have to be put on IV insulin; he was able to come off it rather quickly and placed back on a sliding scale. His DKA resolved. He was treated for his pneumonia, as well as underlying COPD. His mental status changes improved. He was back to his baseline. His creatinine improved. He will be transitioned to Lantus for at least a short term, as well as continued on p.o. metformin. His blood cultures have been negative. His chest x- ray now shows pneumonia. His antibiotics were discontinued. [employer]ising [employer] Operator have found him a bed at [facility]. He is appropriate for discharge there today. VITAL SIGNS AT TIME OF DISCHARGE: Temperature is 97.7 degrees, heart rate 80, respirations 16, blood pressure 129/76, O2 is 99% on room air. DISCHARGE DIET: Diabetic. DISCHARGE MEDICATIONS: As per Dr. Alvares. Please see MAR. FOLLOW-UP: Mr. Amador is being discharged to [facility]. He is to follow up with his primary care physician, Noemi Cintron, after rehab. He can return to the ED for any worsening of symptoms. Dictated by HENRY Padilla for Soham Alvares MD cc: MD Noemi Toth CRNP Seen and examined patient. Patient is clinically stable for discharge. please follow instructions as indicated above MTDD
[2016-11-06 14:11] VITALS: BP 119/71
== END 2016-11-06 17:09 ==
LOC: P.ED 21:03 → SUATTDRO 11-01 03:56 → ICU 11-01 03:56 → 3N 11-02 18:15
PROVIDERS: ADMIT Internal Medicine; ATTEND Internal Medicine